=== PATIENT | male | born 1945 | race Caucasian/White ===

== ENCOUNTER → 2016-10-04 | Outpatient (CLI) | payer MEDICARE, BC | END | disposition home or self-care (01) | LOC: LABWHC1 10:22 | PROVIDERS: ATTEND Radiology Radiation Oncology | DX: C61 Malignant neoplasm of prostate (principal) | CPT/HCPCS: 36415; 84153 ==

== ENCOUNTER → 2016-12-29 | Outpatient (CLI) | payer MEDICARE, BC | END | disposition home or self-care (01) | LOC: LABWHC1 09:29 | PROVIDERS: ATTEND Radiology Radiation Oncology | DX: C61 Malignant neoplasm of prostate (principal) | CPT/HCPCS: 36415; 84153 ==

== ENCOUNTER → 2017-05-03 | Outpatient (CLI) | payer MEDICARE, BC | END | disposition home or self-care (01) | LOC: LABWHC1 10:43 | PROVIDERS: ATTEND Radiology Radiation Oncology | DX: C61 Malignant neoplasm of prostate (principal) | CPT/HCPCS: 36415; 84153 ==

== ENCOUNTER → 2017-10-12 | Outpatient (CLI) | payer MEDICARE, BC ==
[2017-10-12 12:32] LABS: Appearance,Urine Clear (Clear); Bilirubin,Urine Negative (Negative); Blood,Urine Negative (Negative); Color,Urine Yellow; Glucose,Urine (UA) Negative (Negative); Ketones,Urine Negative (Negative); Leukocyte Esterase,Urine Negative (Negative); Nitrite,Urine Negative (Negative); PH, Urine 5.5 (5.0-8.0); Protein,Urine Negative (Negative); Specific Gravity,Urine 1.016 (1.001-1.035); Urobilinogen,Urine <2.0 mg/dL (<2.0)
[2017-10-12 12:40] LABS: HCT 45.4 % (39.0-53.0); MCHC 35.1 g/dL (31.0-37.0); MCV 88.3 fL (80.0-100.0); Mean Platelet Volume 7.6; Platelet Count 177 k/uL (150-450); RBC 5.15 m/uL (4.30-5.90); RDW 12.8 % (11.5-15.5); WBC 4.2 k/uL (3.8-10.6)
[2017-10-12 12:43] LABS: Partial Thromboplastin Time 22.4 sec (22.0-30.0); Prothrombin Time 9.9 sec (9.0-12.0)
[2017-10-12 12:49] LABS: ALT 45 U/L (21-72); AST 37 U/L (17-59); Albumin 4.4 g/dL (3.5-5.0); Alkaline Phosphatase 71 U/L (38-126); Anion Gap 15 mmol/L; Blood Urea Nitrogen 16 mg/dL (9-20); Calcium 10.1 mg/dL (8.4-10.2); Carbon Dioxide 28 mmol/L (22-30); Chloride 102 mmol/L (98-107); Glucose 76 mg/dL (74-99); Potassium 4.6 mmol/L (3.5-5.1); Sodium 145 mmol/L (137-145); Total Protein 7.1 g/dL (6.3-8.2)
== END | disposition home or self-care (01) ==
LOC: LABPAT 11:32
PROVIDERS: ATTEND Orthopaedic Surgery
DX: Z01.812 Encounter for preprocedural laboratory examination (principal); M17.11 Unilateral primary osteoarthritis, right knee
CPT/HCPCS: 36415; 80053; 81003; 85027; 85610; 85730; 87070

== ENCOUNTER 2017-10-23 08:38 | Inpatient (IN) | payer MEDICARE, BC ==
[2017-10-11 18:12] VITALS: BMI 34.2
[~2017-10-23 08:38] MED LIST: ACETAMINOPHEN TAB 500 MG TAB PO ONE; LIDOCAINE 1% 20 ML VIAL (10MG/ML) FOR IV START INTRADERMA PRN; MELOXICAM 7.5 MG TAB PO ONE; MORPHINE SULFATE 2 MG/ML SYRINGE IV PRN; ONDANSETRON 4 MG/2 ML VIAL IVP ONE; TRANEXAMIC ACID 1,000 MG in SODIUM CHLORIDE 0.9% 50 ML IVPB ONE; ceFAZolin IN SWFI 2 GM/20 ML SYRINGE IVP ONE
[2017-10-23] MEDS: LACTATED RINGERS 1,000 ML IV SCH ×2 (11:32→17:41)
[2017-10-23] MEDS ORDERED: LIDOCAINE 2% (PF) 20 MG/ML 2 ML AMP INHALATION STA (11:44)
[2017-10-23] MEDS ORDERED: ROPIVACAINE 246.25 MG, EPINEPHrine 0.5 MG, KETOROLAC 30 MG, cloNIDine HCL/PF 80 MCG, WA... MISCELLANE ONE ×5 (12:58)
[2017-10-23] MEDS ORDERED: fentaNYL (PF) 50 MCG/ML 2 ML AMP ONE (13:09)
[2017-10-23] MEDS ORDERED: PHENYLEPHRINE-0.9% NACL SYG 1 MG/10 ML SYRINGE ONE (13:09)
[2017-10-23] MEDS ORDERED: LIDOCAINE 1% INJ 10MG/ML (20 ML MDV) ONE (13:09)
[2017-10-23] MEDS ORDERED: GLYCOPYRROLATE 0.2 MG/ML 2 ML VIAL ONE (13:09)
[2017-10-23] MEDS ORDERED: SODIUM CHLORIDE 0.9% 100 ML BAG ONE (13:09)
[2017-10-23] MEDS ORDERED: ceFAZolin 3,000 MG in SODIUM CHLORIDE 0.9% IRRIGATIO 3,000 ML IRRIGATION ONE (13:09)
[2017-10-23] MEDS ORDERED: NEOSTIGMINE 1 MG/ML 10 ML VIAL ONE (13:09)
[2017-10-23] MEDS ORDERED: MIDAZOLAM 2 MG/2 ML VIAL ONE (13:09)
[2017-10-23] MEDS ORDERED: TRANEXAMIC ACID 1,000 MG/10 ML VIAL ONE (13:09)
[2017-10-23] MEDS ORDERED: PROPOFOL 10 MG/ML 20 ML VIAL IV ONE (13:09)
[2017-10-23] MEDS ORDERED: DEXAMETHASONE SOD PHOS (MDV) 100 MG/10 ML VIAL ONE (13:09)
[2017-10-23] MEDS ORDERED: ROCURONIUM BROMIDE 10 MG/ML 10 ML VIAL IV ONE (13:09)
[2017-10-23] MEDS ORDERED: LACTATED RINGERS 1,000 ML IV ONE (14:06)
[2017-10-23] MEDS ORDERED: HYDROcodone/APAP 7.5-325MG 1 EACH TAB PO PRN (16:03)
[2017-10-23] MEDS ORDERED: MORPHINE SULFATE 4MG/4ML SYRG IVP PRN ×4 (16:03)
[2017-10-23] MEDS ORDERED: hydrOXYzine PAMOATE 25 MG CAP PO PRN (16:03)
[2017-10-23] MEDS ORDERED: TEMAZEPAM 15 MG CAP PO PRN (16:03)
[2017-10-23] MEDS ORDERED: ONDANSETRON 4 MG/2 ML VIAL IVP PRN (16:03)
[2017-10-23] MEDS ORDERED: BISACODYL 10 MG SUPP RECTAL PRN (16:03)
[2017-10-23] MEDS ORDERED: NALOXONE 0.4 MG/ML 1 ML VIAL IV PRN (16:03)
[2017-10-23] MEDS ORDERED: NA PHOS,M-B/NA PHOS,DI-BA 133 ML ENEMA RECTAL PRN (16:03)
[2017-10-23] MEDS ORDERED: ACETAMINOPHEN TAB 325 MG TAB PO PRN (16:03)
[2017-10-23] MEDS ORDERED: MAGNESIUM HYDROXIDE 2,400 MG/10 ML CUP PO PRN (16:03)
--- NOTE | 2017-10-23 16:19 | P.OP ---
Date of Procedure: 10/23/17 Procedure(s) Performed: PREOPERATIVE DIAGNOSIS: Right knee severe osteoarthritis with genu varum POSTOPERATIVE DIAGNOSIS: Right knee severe osteoarthritis with genu varum OPERATION: Right knee cemented total replacement arthroplasty. ANESTHESIA: Gen. ESTIMATED BLOOD LOSS: 100 ml. SECONDARY ART TEACHER: Elle Shea PA-C (assistance with: patient positioning, retraction, exposure, hemostasis, leg positioning, implantation, irrigation, closure, dressing) COMPLICATIONS: None apparent. COMPONENTS IMPLANTED: Persona system from [employer] INDICATIONS: Mr. Moralez is a 72-year-old male with a history of knee osteoarthritis. The patient's knee is end-stage, and conservative management has failed. The operation of knee replacement has been discussed at length in the office, as well as potential risks and complications. These are inclusive of, but not limited to: bleeding, infection, scarring, discomfort, blood vessel and nerve damage, need for further surgery, failure to relieve symptoms, persistence, recurrence, or worsening of problems, loosening, dislocation, wear , blood clot, pulmonary embolism, , gait dysfunction, stiffness, and other risks as discussed in the office. The patient elects to proceed and the consent form has been signed. PROCEDURE: The patient was taken to the operating room and positioned on the operating room table in the supine position. Anesthesia was initiated. Care was taken to make sure that all pressure points were adequately padded. The operative lower extremity was prepped and draped in the usual aseptic fashion using ChloraPrep. Patient was noted to have approximately a 10 flexion contracture and range of motion only to approximately 90 passively. Severe varus deformity was noted. Ioban drape was used for the case and the patient received intravenous antibiotics within one hour of the incision. A pneumotourniquet and leg de la vega were used for the case. The limb was exsanguinated with an Esmarch bandage and the tourniquet was inflated to 300 mmHg. Time-out was called confirming the patient's identity, side, procedure and administration of antibiotics and tranexamic acid. The incision was then created midline directly over the knee, carried down through skin and into the subcutaneous tissues and down to fascia. Full thickness subcutaneous medial flap was developed. Medial parapatellar arthrotomy was performed and the interior of the knee was inspected. There was end-stage osteoarthritis of the knee with a mild to moderate genu varum type deformity. The fat pad was excised and proximal medial release on the tibia was completed using meticulous dissection and a curved osteotome. The anterior cruciate ligament was taken down. Note was made of significant attrition of the anterior and significant degenerative appearance of the cruciate ligaments. The exposure was excellent. The knee was flexed 90 degrees and the patella was everted. A spot was chosen on the femur approximately 1 cm anterior to the posterior cruciate ligament insertion and an intramedullary hole was created within the femur. The intramedullary guide was then set to 5 degrees of valgus. The distal cutting block was attached and pinned into position. An appropriate amount of distal femoral resection was set. The oscillating saw was then used to make the distal femoral cut. This cut was confirmed to be flat with the flat end of an osteotome. The retractors were placed around the tibia and the tibial surface was addressed. The angle and depth of resection was adjusted using an extramedullary cutting guide. The guide had a built-in 3 degree posterior slope cut. Once the cutting guide was adjusted appropriately and in line with the axis of the tibia and confirmed to be in good position in relation to the second metatarsal and transmalleolar axis, the tibial cut was then created with protection of the posterior neurovascular structures and the collateral ligaments. The tibial cut surface was removed and sized. Femoral sizing was then accomplished using anterior referencing. Care was taken to analyze the posterior condyles for signs of deficiency or severe wear, and adjustments to the guide were made, as appropriate. 3 degree external rotation pins were placed. The cutting jig for the femur was applied to these pins. The planned cuts were further analyzed prior to performing them with the oscillating saw. No femoral notching was produced. Bone fragments were removed and the cut surfaces were finished, as necessary, with a reciprocating saw. The posterior aspect of the knee contained 3 fairly large loose bodies made of bone which were removed carefully under direct visualization. Spacer block technique was then used to confirm that the flexion and extension gaps were equal. Soft tissue releases and adjustment of the tibial and/or femoral cuts were made, as necessary, until the gaps were equal. This included release of the posterior cruciate ligament, which was excessively tight in this patient. The femur was then further finished for a posterior cruciate ligament substituting component. Patellar resurfacing was performed using a reamer. The size of the required patellar component was estimated and the patellar surface was then reamed down to a residual thickness which would recreate the [place] thickness with the component. The exact placement of the patellar component was adjusted for position based on preoperative x-rays and intraoperative findings. Prior to placing trial components, anesthetic solution consisting of ropivicaine with epinephrine, ketorolac, and clonidine was injected carefully and methodically in a grid pattern using aspiration technique into the soft tissue around the knee circumferentially, starting with the deeper tissues first and progressing to fascia, and then finally the skin/subcutaneous tissue. Particular care was taken when injecting the posterior capsule. The trial components were inserted. The tibial tray was allowed to self center and the patella was noted to track very well. The position of the tibial component was marked and the tibia was then finished for a stemmed tibial component. Cement was mixed on the back table and applied to the final components. Trial components were removed and the cut surfaces of the bone were pulse lavaged thoroughly and dried. Cement was then applied to the tibial surface and pressurized into the surface using finger pressurization technique. The tibial component was then applied and excess cement was removed after it was impacted securely and noted to be flush with the cut surface. In similar fashion, the cement was applied to the cut femoral surface, pressurized in using finger pressurization and the component was impacted into place. Excess cement was removed. The polyethylene spacer was then implanted and locked into position. The patellar component was then applied in similar technique and a patellar clamp was used to hold the patella in place as the cement hardened. Once the cement had fully hardened, the knee was reinspected. Any other cement extrusion was removed and final kinematic testing showed range of motion from 0 to 130 degrees with excellent stability, both medially and laterally and appropriate alignment of the leg. Patellar tracking was excellent. The knee was then thoroughly pulse lavaged with normal saline. The tourniquet was deflated and hemostasis was obtained with electrocautery and IV tranexamic acid, 1 g given at the start of the operation and 1 g at the start of closure. Closure was with #2 Ethibond in the fascia/capsule and supplemented with #2 Quill, 2-0 Vicryl suture was used for the subcutaneous tissues and 3-0 Quill for the skin. Dermabond/Steri-Strips were then applied. A lightly compressive dressing was applied using Webril and an Tom wrap. The patient was then transferred to [facility] and taken to the recovery room in stable condition. Sponge and needle counts were correct.
--- NOTE | 2017-10-23 16:31 | XR ---
EXAMINATION TYPE: XR knee limited RT DATE OF EXAM: 10/23/2017 CLINICAL HISTORY: Right knee pain and arthritis status post total knee replacement. TECHNIQUE: Portable AP and crosstable lateral views of the right knee are obtained immediately posto peratively. COMPARISON: None FINDINGS: Metallic hardware from total right knee arthroplasty is seen and appears satisfactory in a lignment and position. There is evidence of recent surgery with diffuse subcutaneous gas and soft ti ssue swelling noted. IMPRESSION: METALLIC HARDWARE FROM TOTAL RIGHT KNEE ARTHROPLASTY IS SATISFACTORY IN ALIGNMENT.
[2017-10-23] MEDS: SENNOSIDES-DOCUSATE SODIUM 1 EACH TAB PO SCH (21:03)
[2017-10-24] MEDS: LACTATED RINGERS 1,000 ML IV SCH ×4 (04:42→21:32)
[2017-10-24] MEDS: HYDROcodone/APAP 7.5-325MG 1 EACH TAB PO PRN ×3 (06:45→20:31)
[2017-10-24] MEDS: MULTIVITAMINS, THERA 1 EACH TAB PO SCH (06:46)
[2017-10-24] MEDS: MELOXICAM 7.5 MG TAB PO SCH (06:46)
[2017-10-24 07:56] LABS: Basophils % (A) 0 %; Eosinophils % (A) 0 %; HCT 37.2 % (39.0-53.0); HGB 13.3 gm/dL (13.0-17.5); Lymphocytes # (A) 0.6 k/uL (1.0-4.8); Lymphocytes % (A) 5 %; MCH 31.3 pg (25.0-35.0); MCHC 35.6 g/dL (31.0-37.0); MCV 87.7 fL (80.0-100.0); Mean Platelet Volume 7.6; Monocytes # (A) 0.6 k/uL (0-1.0); Monocytes % (A) 5 %; Neutrophils # (A) 11.1 k/uL (1.3-7.7); Neutrophils % (A) 90 %; Platelet Count 187 k/uL (150-450); RBC 4.24 m/uL (4.30-5.90); RDW 12.6 % (11.5-15.5); WBC 12.4 k/uL (3.8-10.6)
[2017-10-24] MEDS: CARVEDILOL 12.5 MG TAB PO SCH (08:42)
[2017-10-24] MEDS: DIPYRIDAMOLE-ASPIRIN 200-25 MG 1 EACH CPMP.12HR PO SCH (08:42)
[2017-10-24] MEDS: TRIAMTERENE-HCTZ 37.5-25MG 1 EACH CAP PO SCH (08:42)
[2017-10-24] MEDS: ATORVASTATIN 10 MG TAB PO SCH (08:42)
--- NOTE | 2017-10-24 08:48 | P.PN ---
Subjective Progress Note Date: 10/24/17 Principal diagnosis: Status post right total knee arthroplasty This is a 72 year-old male post right total knee arthroplasty. This is post-op day 1. The patient was evaluated at the bedside today. The patient denies nausea, vomiting, abdominal pain, shortness of breath, and chest pain this morning. He states his pain is controlled at this time. The patient has not been up with physical therapy. There has been some drainage from his incision this morning. Objective - Vital Signs Vital signs: Vital Signs Temp 97.1 F L 10/24/17 06:43 Pulse 82 10/24/17 06:43 Resp 16 10/24/17 06:49 BP 119/77 10/24/17 06:43 Pulse Ox 93 L 10/24/17 06:43 Intake & Output 10/23/17 10/24/17 10/24/17 18:59 06:59 18:59 Intake Total 1621 800 Output Total 100 325 Balance 1521 475 Weight 102.058 kg Intake: IV 1501 Intake, IV Titration 800 Amount Lactated Ringers 1,000 ml 800 @ 100 mls/hr IV .Q10H [facility] Rx#:[id number] Oral 120 Output: Urine 325 Estimated Blood Loss 100 Other: Voiding Method Urinal - Exam The patient does not appear in acute distress. Alert and orientated x3. Dressing is intact. Incision appears fine with no erythema. There is a small amount of serosanguineous drainage on the dressing. Calf is soft and nontender. Good foot and ankle motion without difficulty. Sensation and circulatory status is intact. - Labs CBC & Chem 7: 10/24/17 06:35 Labs: Abnormal Lab Results - Last 24 Hours (Table) 10/24/17 Range/Units 06:35 WBC 12.4 H (3.8-10.6) k/uL RBC 4.24 L (4.30-5.90) m/uL Hct 37.2 L (39.0-53.0) % Neutrophils # 11.1 H (1.3-7.7) k/uL Lymphocytes # 0.6 L (1.0-4.8) k/uL Assessment and Plan (1) Primary localized osteoarthritis of right knee Current Visit: Yes Status: Acute Code(s): M17.11 - UNILATERAL PRIMARY OSTEOARTHRITIS, RIGHT KNEE SNOMED Code(s): 657348363 (2) Status post total right knee replacement Current Visit: Yes Status: Acute Code(s): Z96.651 - PRESENCE OF RIGHT ARTIFICIAL KNEE JOINT SNOMED Code(s): 7516543646919 Plan: 1. Continue pain control 2. Anticoagulation with Aggrenox 3. Start physical therapy and ambulation, hold CPM today due to drainage. 4. Anticipate discharge home with homecare tomorrow
[2017-10-24] MEDS ORDERED: HYDROmorphone 2 MG TAB PO PRN ×3 (08:58→08:59)
[2017-10-24] MEDS ORDERED: HYDROmorphone 4 MG TABLET PO PRN (08:59)
--- NOTE | 2017-10-24 11:28 | P.CONS ---
History of Present Illness - Reason for Consult Consult date: 10/24/17 Medical management - Chief Complaint s/p right TKA - History of Present Illness 72-year-old male who underwent elective right total knee arthroplasty on 10/23/[address] Burnette was consulted for medical management. The patient has a history of prostate cancer, TIA, hyperlipidemia, hypertension , pulmonary emboli, and osteoarthritis. He is a former cigarette smoker. Patient was evaluated at the bedside on rounds with Dr. Burnette. Patient is awake and alert. Sitting up in bed. He states he has not been out of bed yet. Denies pain. Denies shortness of breath. Denies chest pain. Denies cough. He reports using his incentive spirometer 10 times an hour and has been pulling 2500- 3000cc. Appetite is good. Denies nausea or vomiting. Review of Systems Those systems with pertinent positive or pertinent negative responses have been documented in the HPI Past Medical History Past Medical History: Cancer, CVA/TIA, Hyperlipidemia, Hypertension, Osteoarthritis (OA), Pulmonary Embolus (PE) Additional Past Medical History / Comment(s): Hx had a cardiac event after prostectomy post op-pt went unresponsive cpr transfer to ICU was needed,TIAs-no residual,Prostate CA 2012-recurrence 2016 Radiation 30 txs 2016-has intermittent bleeding with urine and stools,hx back fx History of Any Multi-Drug Resistant Organisms: None Reported Past Surgical History: Back Surgery, Prostate Surgery Additional Past Surgical History / Comment(s): Turcios Alejandro Fusion to spine w / bone graft site rt hip,brenda cataract Past Anesthesia/Blood Transfusion Reactions: No Reported Reaction Additional Past Anesthesia/Blood Transfusion Reaction / Comm: hx had jaundice reaction to blood transfusion Past Psychological History: No Psychological Hx Reported Smoking Status: Former smoker Past Alcohol Use History: Occasional Additional Past Alcohol Use History / Comment(s): smoked approx from age [age] Past Drug Use History: None Reported - Past Family History Mother Family Medical History: No Reported History Medications and Allergies Home Medications Medication Instructions Recorded Confirmed Type Atorvastatin [Lipitor] 10 mg PO DAILY 10/11/17 10/23/17 History Carvedilol [Coreg] 12.5 mg PO QAM 10/11/17 10/23/17 History Cholecalciferol [Vitamin D3] 5,000 unit PO DAILY 10/11/17 10/23/17 History Dipyridamole-Aspirin 200-25 mg 1 tab PO QAM 10/11/17 10/23/17 History [Aggrenox] Fish Oil/Dha/Epa [Fish Oil 1,200 1 cap PO DAILY 10/11/17 10/23/17 History mg Fish Oil] Triamterene-Hctz 37.5-25Mg 1 cap PO DAILY 10/11/17 10/23/17 History [Dyazide 37.5-25 Capsule] Vitamin E (Dl,Tocopheryl Acet) 400 unit PO DAILY 10/11/17 10/23/17 History [Vitamin E] HYDROcodone/APAP 7.5-325MG [[place] 1 - 2 tab PO Q4-6H PRN #90 tab 10/23/17 Rx 7.5-325] Sennosides-Docusate Sodium 1 tab PO BID #60 tablet 10/23/17 Rx [Senokot-S] Allergies Allergy/AdvReac Type Severity Reaction Status Date / Time No Known Allergies Allergy Verified 10/23/17 16:26 Physical Exam Vitals: Vital Signs Temp Pulse Pulse Resp BP Pulse Ox 10/24/17 08:45 83 123/57 10/24/17 06:49 16 10/24/17 06:43 97.1 F L 82 16 119/77 93 L 10/24/17 01:45 97.5 F L 88 17 124/79 95 10/23/17 19:00 78 134/79 10/23/17 18:45 83 129/85 10/23/17 18:30 80 131/88 10/23/17 18:15 81 136/79 10/23/17 18:00 74 136/80 10/23/17 17:45 71 132/73 10/23/17 17:30 71 136/86 10/23/17 17:23 16 10/23/17 17:15 75 149/89 10/23/17 17:00 70 16 134/77 96 10/23/17 16:41 70 16 123/72 96 10/23/17 16:27 74 16 125/78 95 10/23/17 16:12 97.1 F L 76 16 132/76 97 10/23/17 11:58 75 10/23/17 11:48 75 18 Intake and Output 10/23/17 10/24/17 10/24/17 22:59 06:59 14:59 Intake Total 220 800 Output Total 425 Balance -205 800 Intake: IV 100 Intake, IV Titration 800 Amount Lactated Ringers 1,000 ml 800 @ 100 mls/hr IV .Q10H [facility] Rx#:[id number] Oral 120 Output: Urine 325 Estimated Blood Loss 100 Other: Voiding Method Urinal # Voids 1 Weight 102.058 kg GENERAL: This is a 72-year-old male in no apparent distress at the time of examination. Pleasant and cooperative. HEENT: Head is atraumatic, normocephalic. Pupils are equal, round, and reactive to light. Sclerae anicteric. Conjunctivae are clear. Mucus membranes of the mouth are moist. Neck is supple. RESPIRATORY: Clear to ausculation. No wheezes, rales, or rhonchi. No use of accessory muscles. Patient maintaining oxygen saturation greater than 92%. No chest wall tenderness is noted on palpation or with deep breathing. CARDIOVASCULAR: Regular rate and rhythm. S1 and S2 noted. No systolic or diastolic murmur auscultated. No JVD noted. No S3 or S4 noted. GASTROINTESTINAL: No distention noted. Abdomen soft and round. Normal active bowel sounds auscultated x 4 quadrants. No pain or tenderness noted upon palpation. INTEGUMENTARY: Dressing to right knee with small amount of serosanguineous drainage. No cyanosis. No jaundice. No rashes noted. No cellulitis noted. EXTREMITIES: 2+ peripheral pulses. No evidence of peripheral edema. No calf tenderness noted. NEUROLOGIC: Cranial nerves II-XII intact. PSYCHIATRIC: Awake, alert, and oriented X 3. Appropriate affect. Intact judgement and insight. Results CBC & Chem 7: 10/24/17 06:35 Labs: Abnormal Lab Results - Last 24 Hours (Table) 10/24/17 Range/Units 06:35 WBC 12.4 H (3.8-10.6) k/uL RBC 4.24 L (4.30-5.90) m/uL Hct 37.2 L (39.0-53.0) % Neutrophils # 11.1 H (1.3-7.7) k/uL Lymphocytes # 0.6 L (1.0-4.8) k/uL Assessment and Plan Plan: ASSESSMENT: Osteoarthritis, s/p right total knee arthroplasty, POD #1 Essential hypertension Hyperlipidemia History of TIA History of pulmonary embolus History of prostate cancer Remote history of tobacco abuse Obesity: BMI 34.2 PLAN: Continue postop management per orthopedics Home meds as appropriate Pain control Increase activity IS 10x/hour Monitor labs Resume Aggrenox Monitor vital signs and address as appropriate Further recommendations pending patient's course Patient is cleared for discharge from a medical standpoint when cleared by orthopedics Nurse practitioner note has been reviewed by physician. Signing provider agrees with the documented findings, assessment, and plan of care.
[2017-10-24] MEDS: SENNOSIDES-DOCUSATE SODIUM 1 EACH TAB PO SCH (20:31)
[2017-10-25] MEDS ORDERED: HYDROcodone/APAP 7.5-325MG 1 EACH TAB ONE (06:15)
[2017-10-25] MEDS ORDERED: hydrOXYzine PAMOATE 25 MG CAP ONE (06:15)
--- NOTE | 2017-10-25 07:58 | P.DS ---
Providers Date of admission: 10/23/17 10:33 Expected date of discharge: 10/25/17 Attending physician: Santiago Massey Consults: 10/23/17 16:03 Consult Physician Routine Consulting Provider: Juvencio Burnette Reason/Comments: Medical management Do you want consulting provider notified?: Yes Primary care physician: Juvencio Burnette - Discharge Diagnosis(es) (1) Primary localized osteoarthritis of right knee Current Visit: Yes Status: Acute (2) Status post total right knee replacement Current Visit: Yes Status: Acute Hospital Course: This is a 72-year-old male who was last seen with complaint of continued right knee pain. The patient has a known history of degenerative arthritis of the right knee and presents to discuss surgical options. After discussion and consideration the patient elects to proceed with total right knee arthroplasty. The patient is seen preoperatively by his primary care physician and cleared for surgery. The patient is admitted to [facility] for total right knee arthroplasty. The procedure is performed without complication or sequelae. Patient is doing fairly well postoperatively. The patient states that he feels he may have overdone it with activity on the evening of his surgery. He had increased drainage from the knee on postoperative day #1. On exam today he has a scant amount of active drainage from the midportion of the incision. The Dermabond tape is intact. Vital signs are stable at discharge. Labs are stable at discharge. the patient is ambulating well with walker with minimal assistance. The patient is discharged to home on postop day #2 pending medical clearance. Please see orders and refer to the med rec for accurate list of medications. Plan - Discharge Summary Discharge Rx Participant: Yes New Discharge Prescriptions: New HYDROcodone/APAP 7.5-325MG [[place] 7.5-325] 1 - 2 tab PO Q4-6H PRN #90 tab PRN Reason: Pain Sennosides-Docusate Sodium [Senokot-S] 1 tab PO BID #60 tablet hydrOXYzine PAMOATE [Vistaril] 25 mg PO Q4-6H #30 capsule No Action Triamterene-Hctz 37.5-25Mg [Dyazide 37.5-25 Capsule] 1 cap PO DAILY Carvedilol [Coreg] 12.5 mg PO QAM Dipyridamole-Aspirin 200-25 mg [Aggrenox] 1 tab PO QAM Atorvastatin [Lipitor] 10 mg PO DAILY Vitamin E (Dl,Tocopheryl Acet) [Vitamin E] 400 unit PO DAILY Cholecalciferol [Vitamin D3] 5,000 unit PO DAILY Fish Oil/Dha/Epa [Fish Oil 1,200 mg Fish Oil] 1 cap PO DAILY Discharge Medication List Atorvastatin [Lipitor] 10 mg PO DAILY 10/11/17 [History] Carvedilol [Coreg] 12.5 mg PO QAM 10/11/17 [History] Cholecalciferol [Vitamin D3] 5,000 unit PO DAILY 10/11/17 [History] Dipyridamole-Aspirin 200-25 mg [Aggrenox] 1 tab PO QAM 10/11/17 [History] Fish Oil/Dha/Epa [Fish Oil 1,200 mg Fish Oil] 1 cap PO DAILY 10/11/17 [History] Triamterene-Hctz 37.5-25Mg [Dyazide 37.5-25 Capsule] 1 cap PO DAILY 10/11/17 [ History] Vitamin E (Dl,Tocopheryl Acet) [Vitamin E] 400 unit PO DAILY 10/11/17 [History] HYDROcodone/APAP 7.5-325MG [[place] 7.5-325] 1 - 2 tab PO Q4-6H PRN #90 tab [Rx] Sennosides-Docusate Sodium [Senokot-S] 1 tab PO BID #60 tablet 10/23/17 [Rx] hydrOXYzine PAMOATE [Vistaril] 25 mg PO Q4-6H #30 capsule 10/25/17 [Rx] Follow up Appointment(s)/Referral(s): Elle Shea PAC [PHYSICIAN SPECIAL EDUCATION CLASSROOM AIDE] - 2 Weeks [facility] Visiting Nurse, [NON-STAFF] - Santiago Massey MD [STAFF PHYSICIAN] - 3 Days Ambulatory/Diagnostic Orders: Continuous Passive Motion (CPM) Machine [DME.AMB1] Time Frame: 3 Weeks, Facility : [facility], Location: Case Management Activity/Diet/Wound Care/Special Instructions: May bear wt as tolerated. Keep a compressive bandage on the knee if having significant drainage. May shower if no drainage from incision for 24 hours. Hold CPM until Monday. CPM 5-6h daily as tolerated after that point. [facility] - [facility] - [phone] - please call once home to arrange delivery Discharge Disposition: HOME WITH HOME HEALTH SERVICES
[2017-10-25] MEDS: LACTATED RINGERS 1,000 ML IV SCH ×3 (08:23→16:30)
--- NOTE | 2017-10-25 08:44 | P.PN ---
Subjective Progress Note Date: 10/25/17 Patient evaluated at the bedside with Dr. Burnette. Patient is awake and alert. Patient states pain is tolerable. Denies shortness of breath or chest pain. Using IS hourly. Appetite is good. Denies nausea or vomiting. Objective - Vital Signs Vital signs: Vital Signs Temp 98.1 F 10/25/17 08:12 Pulse 75 10/25/17 08:12 Resp 16 10/25/17 08:12 BP 126/73 10/25/17 08:12 Pulse Ox 92 L 10/25/17 08:12 Intake & Output 10/24/17 10/25/17 10/25/17 18:59 06:59 18:59 Intake Total 240 Balance 240 Intake: Oral 240 Other: # Voids 1 - Exam GENERAL: This is a 72-year-old male in no apparent distress at the time of examination. Pleasant and cooperative. HEENT: Head is atraumatic, normocephalic. Pupils are equal, round, and reactive to light. Sclerae anicteric. Conjunctivae are clear. Mucus membranes of the mouth are moist. Neck is supple. RESPIRATORY: Clear to ausculation. No wheezes, rales, or rhonchi. No use of accessory muscles. Patient maintaining oxygen saturation greater than 92%. No chest wall tenderness is noted on palpation or with deep breathing. CARDIOVASCULAR: Regular rate and rhythm. S1 and S2 noted. No systolic or diastolic murmur auscultated. No JVD noted. No S3 or S4 noted. GASTROINTESTINAL: No distention noted. Abdomen soft and round. Normal active bowel sounds auscultated x 4 quadrants. No pain or tenderness noted upon palpation. INTEGUMENTARY: Dressing to right knee with ARNAUD wrap noted. No cyanosis. No jaundice. No rashes noted. No cellulitis noted. EXTREMITIES: 2+ peripheral pulses. No evidence of peripheral edema. No calf tenderness noted. NEUROLOGIC: Cranial nerves II-XII intact. PSYCHIATRIC: Awake, alert, and oriented X 3. Appropriate affect. Intact judgement and insight. - Labs CBC & Chem 7: 10/24/17 06:35 Assessment and Plan Plan: ASSESSMENT: Osteoarthritis, s/p right total knee arthroplasty, POD #2 Essential hypertension Hyperlipidemia History of TIA History of pulmonary embolus History of prostate cancer Remote history of tobacco abuse Obesity: BMI 34.2 PLAN: Continue postop management per orthopedics Home meds as appropriate Pain control Increase activity IS 10x/hour Monitor labs Resume Aggrenox Monitor vital signs and address as appropriate Further recommendations pending patient's course Patient is cleared for discharge from a medical standpoint Nurse practitioner note has been reviewed by physician. Signing provider agrees with the documented findings, assessment, and plan of care.
[2017-10-25] MEDS: ATORVASTATIN 10 MG TAB PO SCH (09:18)
[2017-10-25] MEDS: MELOXICAM 7.5 MG TAB PO SCH (09:18)
[2017-10-25] MEDS: CARVEDILOL 12.5 MG TAB PO SCH (09:18)
[2017-10-25] MEDS: DIPYRIDAMOLE-ASPIRIN 200-25 MG 1 EACH CPMP.12HR PO SCH (09:18)
[2017-10-25] MEDS: TRIAMTERENE-HCTZ 37.5-25MG 1 EACH CAP PO SCH (09:19)
[2017-10-25 09:34] LABS: Glucose,Whole Blood 209 mg/dL (75-99)
--- NOTE | 2017-10-25 10:00 | CT ---
EXAMINATION TYPE: CT brain wo con DATE OF EXAM: 10/25/2017 COMPARISON: 12/17/2011 MRI INDICATION: Slurred speech DLP: 1126.5 mGycm, Automated exposure control for dose reduction was used. CONTRAST: None CT of the brain is performed utilizing 3 mm thick sections through the posterior fossa and 3 mm thick sections through the remaining calvarium. Study is performed within 24 hours of arrival to the hosp [facility]. No abnormal hyperdensity is present to suggest an acute intracranial hemorrhage. No mass lesion is evident. No acute infarcts are evident. There is periventricular white matter hypodensity, most likely on the basis of chronic white matter ischemic changes. This is confluent. White matter changes were evident on the 2012 MRI may has some progression. Ventricles and sulci are slightly prominent for the patient age compatible with some age related atro phy.. Paranasal sinuses and mastoid air cells within the [id number] are clear. Some septal deviation is noted. IMPRESSIONS: 1. Confluent periventricular white matter changes progressive from 2012. Findings can be compatible with chronic white matter ischemic changes. 2. No acute changes are identified.
[2017-10-25 10:17] LABS: Basophils % (A) 0 %; Eosinophils # (A) 0.1 k/uL (0-0.7); Eosinophils % (A) 2 %; HCT 34.1 % (39.0-53.0); HGB 12.1 gm/dL (13.0-17.5); Lymphocytes # (A) 0.7 k/uL (1.0-4.8); Lymphocytes % (A) 12 %; MCH 31.3 pg (25.0-35.0); MCHC 35.6 g/dL (31.0-37.0); MCV 87.9 fL (80.0-100.0); Mean Platelet Volume 8.4; Monocytes # (A) 0.4 k/uL (0-1.0); Monocytes % (A) 7 %; Neutrophils # (A) 4.4 k/uL (1.3-7.7); Neutrophils % (A) 77 %; Platelet Count 131 k/uL (150-450); RBC 3.87 m/uL (4.30-5.90); RDW 12.9 % (11.5-15.5); WBC 5.7 k/uL (3.8-10.6)
[2017-10-25 10:26] LABS: ALT 25 U/L (21-72); AST 23 U/L (17-59); Albumin 3.3 g/dL (3.5-5.0); Alkaline Phosphatase 56 U/L (38-126); Anion Gap 11 mmol/L; Blood Urea Nitrogen 19 mg/dL (9-20); Calcium 8.4 mg/dL (8.4-10.2); Carbon Dioxide 28 mmol/L (22-30); Chloride 100 mmol/L (98-107); Glucose 115 mg/dL (74-99); Potassium 3.7 mmol/L (3.5-5.1); Sodium 139 mmol/L (137-145); Total Bilirubin 0.9 mg/dL (0.2-1.3); Total Protein 5.6 g/dL (6.3-8.2)
[2017-10-25 10:29] LABS: Partial Thromboplastin Time 22.7 sec (22.0-30.0); Prothrombin Time 9.9 sec (9.0-12.0)
[2017-10-25] MEDS ORDERED: SODIUM CHLORIDE 0.9% 1,000 ML IV SCH (10:45)
[2017-10-25 10:55] LABS: Creatine Kinase 90 U/L (55-170)
[2017-10-25 11:08] LABS: Creatine Kinase MB 1.3 ng/mL (0.0-2.4); Troponin I <0.012 ng/mL (0.000-0.034)
[2017-10-25] MEDS: HYDROcodone/APAP 7.5-325MG 1 EACH TAB PO PRN ×2 (12:27→21:03)
[2017-10-25] MEDS: MULTIVITAMINS, THERA 1 EACH TAB PO SCH (12:29)
--- NOTE | 2017-10-25 13:30 | US ---
EXAMINATION TYPE: US venous doppler duplex LE DATE OF EXAM: 10/25/2017 11:47 AM COMPARISON: CLINICAL HISTORY: s/p right TKA, TIA. HX right TKR on Monday. Right leg swelling and pain. Patient states he is on blood thinners. Patient states having a blood clot in the lung at age 38 from a back injury. SIDE PERFORMED: Bilateral TECHNIQUE: The lower extremity deep venous system is examined utilizing real time linear array sonog jose alejandro with graded compression, doppler sonography and color-flow sonography. VESSELS IMAGED: External Iliac Vein (EIV) Common Femoral Vein Deep Femoral Vein Greater Saphenous Vein * Femoral Vein Popliteal Vein Proximal Calf Veins (* superficial vessels) Right Leg: Negative for DVT Left Leg: Negative for DVT IMPRESSION: 1. Bilateral lower extremity ultrasound negative for deep venous thrombosis.
--- NOTE | 2017-10-25 13:38 | US ---
EXAMINATION TYPE: US carotid duplex BILAT DATE OF EXAM: 10/25/2017 COMPARISON: NONE CLINICAL HISTORY: TIA. Hx of TIA x 20 years ago. Patient states he had a recent episode of trying to put words together. EXAM MEASUREMENTS: RIGHT: Peak Systolic Velocity (PSV) cm/sec ----- Right CCA: 88.6 ----- Right ICA: 89.7 ----- Right ECA: 99.1 ICA/CCA ratio: 1.0 RIGHT: End Diastole cm/sec ----- Right CCA: 10.3 ----- Right ICA: 23.7 ----- Right ECA: 17.6 LEFT: Peak Systolic Velocity (PSV) cm/sec ----- Left CCA: 112.1 ----- Left ICA: 90.5 ----- Left ECA: 86.6 ICA/CCA ratio: 0.8 LEFT: End Diastole cm/sec ----- Left CCA: 26.7 ----- Left ICA: 32.2 ----- Left ECA: 12.8 VERTEBRALS (direction of flow): Right Vertebral: Antegrade Left Vertebral: Antegrade Rhythm: Arrhythmia Bilateral wall thickening. Plaque seen in left bulb. No significant stenosis or elevated velocities. IMPRESSION: 1. Atheromatous plaquing without significant flow-limiting stenosis. Criteria for Assigning % of Stenosis / Diameter reduction (Estimation based on the indirect measurements of the internal carotid artery velocities (ICA PSV). 1. Normal (no stenosis)=ICA PSV < 125 cm/s: ratio < 2.0: ICA EDV<40 cm/s. 2. Less than 50% stenosis=ICA PSV < 125 cm/s: ratio < 2.0: ICA EDV<40 cm/s. 3. 50 to 69% stenosis=ICA PSV of 125 to 230 cm/s: ration 2.0 ? 4.0: ICA EDV 40-100 cm/s. 4. Greater than 70% stenosis to near occlusion= ICA PSV > 230 cm/s: ratio > 4.0: ICA EDV > 100 cm/s. 5. Near occlusion= ICA PSV velocities may be low or undetectable: variable ratio and ICA EDV. 6. Total occlusion=unable to detect flow.
[2017-10-25] MEDS: SENNOSIDES-DOCUSATE SODIUM 1 EACH TAB PO SCH (23:25)
[2017-10-26] MEDS: LACTATED RINGERS 1,000 ML IV SCH (05:50)
[2017-10-26 06:32] LABS: Basophils % (A) 0 %; Eosinophils # (A) 0.2 k/uL (0-0.7); Eosinophils % (A) 3 %; HCT 35.1 % (39.0-53.0); HGB 12.3 gm/dL (13.0-17.5); Lymphocytes # (A) 0.6 k/uL (1.0-4.8); Lymphocytes % (A) 11 %; MCH 30.7 pg (25.0-35.0); MCHC 34.9 g/dL (31.0-37.0); Mean Platelet Volume 7.5; Monocytes # (A) 0.5 k/uL (0-1.0); Monocytes % (A) 10 %; Neutrophils # (A) 3.9 k/uL (1.3-7.7); Neutrophils % (A) 73 %; Platelet Count 140 k/uL (150-450); RBC 3.99 m/uL (4.30-5.90); RDW 12.9 % (11.5-15.5); WBC 5.3 k/uL (3.8-10.6)
--- NOTE | 2017-10-26 07:51 | P.PN ---
Subjective Progress Note Date: 10/26/17 Principal diagnosis: Primary osteoarthritis right knee. Status post Total Right Knee arthroplasty. Transient ischemic attack. This is a 72-year-old male who is status post total right knee arthroplasty. He was sent for discharge yesterday when he developed some symptoms consistent with a TIA. He was taken to the selective care unit and had computed tomography scan of the brain, carotid ultrasound and venous Doppler, all of which were fairly normal. He is currently awaiting an EEG. He has been evaluated by neurology. He states that he is feeling much better today. His symptoms have resolved. He believes that the drainage to his right knee has slowed down as well. Objective - Vital Signs Vital signs: Vital Signs Temp 98.1 F 10/26/17 04:00 Pulse 75 10/26/17 04:00 Resp 16 10/26/17 04:00 BP 100/57 10/26/17 04:00 Pulse Ox 96 10/26/17 04:00 Intake & Output 10/25/17 10/26/17 10/26/17 18:59 06:59 18:59 Intake Total 540 Output Total 1700 Balance 540 -1700 Weight 105.3 kg Intake: Oral 540 Output: Urine 1700 Other: Voiding Method Urinal - Exam This is a pleasant 72-year-old male in no acute distress. He is alert and oriented 3. His speech and mentation are normal this morning. Exam of the right knee reveals that there is mild to moderate sanguinous drainage on the dressing. There is no active drainage noted at this time. The Dermabond tape is intact. However, the tape has loosened from the skin in the area of the prior drainage. There is no erythema. There is mild ecchymosis. Swelling is improved the knee. He does have some edema to the lower leg. He has full foot and ankle motion without difficulty or pain. Neurovascular status to the lower extremity is intact. - Labs CBC & Chem 7: 10/26/17 05:46 10/25/17 10:05 Labs: Abnormal Lab Results - Last 24 Hours (Table) 10/25/17 10/25/17 10/25/17 Range/Units 09:29 10:05 10:05 RBC 3.87 L (4.30-5.90) m/uL Hgb 12.1 L (13.0-17.5) gm/dL Hct 34.1 L (39.0-53.0) % Plt Count 131 L (150-450) k/uL Lymphocytes # 0.7 L (1.0-4.8) k/uL Glucose 115 H (74-99) mg/dL POC Glucose (mg/dL) 209 H (75-99) mg/dL Total Protein 5.6 L (6.3-8.2) g/dL Albumin 3.3 L (3.5-5.0) g/dL 10/26/17 Range/Units 05:46 RBC 3.99 L (4.30-5.90) m/uL Hgb 12.3 L (13.0-17.5) gm/dL Hct 35.1 L (39.0-53.0) % Plt Count 140 L (150-450) k/uL Lymphocytes # 0.6 L (1.0-4.8) k/uL Glucose (74-99) mg/dL POC Glucose (mg/dL) (75-99) mg/dL Total Protein (6.3-8.2) g/dL Albumin (3.5-5.0) g/dL Assessment and Plan (1) Primary localized osteoarthritis of right knee Current Visit: Yes Status: Acute Code(s): M17.11 - UNILATERAL PRIMARY OSTEOARTHRITIS, RIGHT KNEE SNOMED Code(s): 569255093 (2) Status post total right knee replacement Current Visit: Yes Status: Acute Code(s): Z96.651 - PRESENCE OF RIGHT ARTIFICIAL KNEE JOINT SNOMED Code(s): 5286828765363 (3) Transient ischemic attack (TIA) Current Visit: Yes Status: Acute Code(s): G45.9 - TRANSIENT CEREBRAL ISCHEMIC ATTACK, UNSPECIFIED SNOMED Code(s): 458917235 Plan: The clinical findings are discussed the patient. His dressing is changed and he is placed in a compressive dressing. He is to hold the CPM until follow-up on Monday. He is to keep the incision clean and dry with a compressive bandage. He be discharged when cleared with medical and neurology. He is to follow-up in our office on Monday.
[2017-10-26] MEDS: HYDROcodone/APAP 7.5-325MG 1 EACH TAB PO PRN ×2 (07:53→12:57)
--- NOTE | 2017-10-26 08:36 | CONS ---
CONSULTATION DATE OF CONSULTATION: 10/25/2017 CHIEF COMPLAINT: Transient ischemic attack. HISTORY OF PRESENT ILLNESS: The patient is a pleasant 72-year-old, male, who is being evaluated by the neurology service per the request of Dr. Massey for a transient ischemic attack. The patient was admitted to [facility] on 10/23/2017 and underwent a right total knee replacement surgery. He had been doing well after his surgery and was scheduled to be discharged home today. The patient has history of transient ischemic attacks and is on Aggrenox b.i.d. at home. Aggrenox was held for the surgery for 1 week. It was restarted yesterday. Soon after he received Aggrenox, he had a sudden onset of difficulty speaking and code stroke was called. The symptoms lasted a few minutes and resolved spontaneously. A stat CT scan of the brain was done, which showed small-vessel ischemic changes. His carotid Doppler showed no hemodynamically significant stenosis. His cardiac enzymes and INR were normal. His comprehensive metabolic profile was normal except for mild hyperglycemia at 115. His CBC showed mild anemia with a hemoglobin of 12.1 and hematocrit of 34% and thrombocytopenia at 131,000. At the time of my evaluation, the patient is lying in his bed and appears to be in no acute distress. He denies any recurrence of any stroke-like symptoms. PAST MEDICAL HISTORY: Transient ischemic attacks, cancer, dyslipidemia, hypertension, arthritis, history of pulmonary embolism, prostate cancer, spine surgery, cataract surgery. SOCIAL HISTORY: The patient is a former smoker. He occasionally drinks alcohol. He denies any drug use. FAMILY HISTORY: Noncontributory. HOME MEDICATIONS: Reviewed in the chart. ALLERGIES: No known drug allergies. REVIEW OF SYSTEMS: CONSTITUTIONAL: Negative. EYES: Negative. ENT: Negative. CARDIOVASCULAR: Negative. RESPIRATORY: Negative. NEUROLOGICAL: As mentioned above. GASTROINTESTINAL: Negative. GENITOURINARY: Negative. PSYCHIATRIC: Negative. MUSCULOSKELETAL: As mentioned above. DERMATOLOGICAL: Negative. ENDOCRINE: Negative. PHYSICAL EXAM: Vital signs show a temperature of 97.2, pulse 89, respiration 18, blood pressure 123/79. GENERAL APPEARANCE: The patient is a well-developed, male, who appears to be in no acute distress. HEENT: Normocephalic, atraumatic. No facial asymmetry is seen. Extraocular muscles are intact. Neck is supple with no masses felt. CARDIOVASCULAR: Regular rate and rhythm. ABDOMEN: Nontender, nondistended. Extremities showed trace edema with no clubbing seen. His right knee is bandaged. NEUROLOGICAL: The patient is awake, aware and oriented x3. Speech and language are normal. No lateralizing weakness is seen. No sensory deficit is noticed. No facial asymmetry is seen on cranial nerve testing. IMPRESSION: 1. Transient ischemic attack. 2. Expressive aphasia, resolved. 3. Thrombocytopenia. 4. Status post right knee replacement surgery. RECOMMENDATION: The patient does appear to have suffered a transient ischemic attack with a transient episode of expressive aphasia. His symptoms continue to be resolved at this time. His Aggrenox was held for his surgery and it was just restarted yesterday. Continue Aggrenox at b.i.d. dosing. I do recommend further monitoring of his platelet count as he does have thrombocytopenia. I reviewed his CT scan of the brain and carotid Doppler both of which showed no significant abnormalities. An EEG will be ordered. Continue the rest of your current workup and management. I will continue to follow with you. Further recommendations to follow. The patient will likely be cleared for discharge from a neurology standpoint tomorrow if his platelet count is not worsening. Thank you for allowing me to participate in the care of your patient. If you have any questions, please feel free to contact me. CHIKI / DEENA: [id number] / SNEHA
--- NOTE | 2017-10-26 09:07 | P.PN ---
Subjective Progress Note Date: 10/26/17 Patient evaluated at the bedside with Dr. Burnette. Patient is awake and alert. Patient states pain is tolerable. Denies shortness of breath or chest pain. Using IS hourly. Appetite is good. Denies nausea or vomiting. No further episodes of altered speech. No motor deficits. Patient was evaluated by neurology yesterday. Awaiting EEG today. Anticipate discharge home today if cleared by neurology and orthopedics. Objective - Vital Signs Vital signs: Vital Signs Temp 98 F 10/26/17 07:53 Pulse 90 10/26/17 07:53 Resp 17 10/26/17 07:53 BP 114/77 10/26/17 07:53 Pulse Ox 93 L 10/26/17 07:53 Intake & Output 10/25/17 10/26/17 10/26/17 18:59 06:59 18:59 Intake Total 540 60 Output Total 1700 200 Balance 540 -1700 -140 Weight 105.3 kg Intake: Oral 540 60 Output: Urine 1700 200 Other: Voiding Method Urinal # Voids 1 # Bowel Movements 0 - Exam GENERAL: This is a 72-year-old male in no apparent distress at the time of examination. Pleasant and cooperative. HEENT: Head is atraumatic, normocephalic. Pupils are equal, round, and reactive to light. Sclerae anicteric. Conjunctivae are clear. Mucus membranes of the mouth are moist. Neck is supple. RESPIRATORY: Clear to ausculation. No wheezes, rales, or rhonchi. No use of accessory muscles. Patient maintaining oxygen saturation greater than 92%. No chest wall tenderness is noted on palpation or with deep breathing. CARDIOVASCULAR: Regular rate and rhythm. S1 and S2 noted. No systolic or diastolic murmur auscultated. No JVD noted. No S3 or S4 noted. GASTROINTESTINAL: No distention noted. Abdomen soft and round. Normal active bowel sounds auscultated x 4 quadrants. No pain or tenderness noted upon palpation. INTEGUMENTARY: Dressing to right knee with ARNAUD wrap noted. No cyanosis. No jaundice. No rashes noted. No cellulitis noted. EXTREMITIES: 2+ peripheral pulses. No evidence of peripheral edema. No calf tenderness noted. NEUROLOGIC: Cranial nerves II-XII intact. PSYCHIATRIC: Awake, alert, and oriented X 3. Appropriate affect. Intact judgement and insight. - Labs CBC & Chem 7: 10/26/17 05:46 10/25/17 10:05 Labs: Abnormal Lab Results - Last 24 Hours (Table) 10/25/17 10/25/17 10/25/17 Range/Units 09:29 10:05 10:05 RBC 3.87 L (4.30-5.90) m/uL Hgb 12.1 L (13.0-17.5) gm/dL Hct 34.1 L (39.0-53.0) % Plt Count 131 L (150-450) k/uL Lymphocytes # 0.7 L (1.0-4.8) k/uL Glucose 115 H (74-99) mg/dL POC Glucose (mg/dL) 209 H (75-99) mg/dL Total Protein 5.6 L (6.3-8.2) g/dL Albumin 3.3 L (3.5-5.0) g/dL 10/26/17 Range/Units 05:46 RBC 3.99 L (4.30-5.90) m/uL Hgb 12.3 L (13.0-17.5) gm/dL Hct 35.1 L (39.0-53.0) % Plt Count 140 L (150-450) k/uL Lymphocytes # 0.6 L (1.0-4.8) k/uL Glucose (74-99) mg/dL POC Glucose (mg/dL) (75-99) mg/dL Total Protein (6.3-8.2) g/dL Albumin (3.5-5.0) g/dL Assessment and Plan Plan: ASSESSMENT: Osteoarthritis, s/p right total knee arthroplasty, POD #3 Transient ischemic attack Essential hypertension Hyperlipidemia History of TIA History of pulmonary embolus History of prostate cancer Remote history of tobacco abuse Obesity: BMI 34.2 PLAN: Continue postop management per orthopedics Home meds as appropriate Pain control Increase activity IS 10x/hour Monitor labs Continue Aggrenox Monitor vital signs and address as appropriate Further recommendations pending patient's course Patient is cleared for discharge from a medical standpoint once cleared by neurology and after EEG is completed Nurse practitioner note has been reviewed by physician. Signing provider agrees with the documented findings, assessment, and plan of care.
[2017-10-26] MEDS: CARVEDILOL 12.5 MG TAB PO SCH (10:06)
[2017-10-26] MEDS: ATORVASTATIN 10 MG TAB PO SCH (10:06)
[2017-10-26] MEDS: MELOXICAM 7.5 MG TAB PO SCH (10:07)
[2017-10-26] MEDS: DIPYRIDAMOLE-ASPIRIN 200-25 MG 1 EACH CPMP.12HR PO SCH (10:07)
[2017-10-26] MEDS: TRIAMTERENE-HCTZ 37.5-25MG 1 EACH CAP PO SCH (10:08)
[2017-10-26 11:32] VITALS: BP 102/67; PULSE 70; RESP 16; TEMP 97.6
[2017-10-26] MEDS: MULTIVITAMINS, THERA 1 EACH TAB PO SCH (12:57)
--- NOTE | 2017-10-26 13:55 | EEG ---
ELECTROENCEPHALOGRAM REPORT DATE OF SERVICE: 10/26/2017 REASON FOR TESTING: Transient ischemic attack. DESCRIPTION OF THE PROCEDURE: This EEG was performed using a 21 channel digital electroencephalograph, following international 10-20 system. DESCRIPTION OF THE RECORDING: From the beginning of the tracing, and with the patient's eyes closed, the background rhythm was mostly consisting of 9 Hz alpha frequency in the posterior occipital leads. No obvious asymmetry is seen. Photic stimulation was performed with a good driving response seen. No pathological waves were elicited. Occasional movement and muscle artifacts are seen. Hyperventilation was not performed. Later in the tracing, the patient does reach stage II of sleep, and occasional sleep spindles are seen. No epileptiform discharges were seen. His EKG lead showed a regular rate and rhythm. INTERPRETATION: This asleep and awake EEG can be considered within normal limits. There was no asymmetry seen. No epileptiform discharges were noticed. The absence of epileptiform discharges does not rule out the diagnosis of epilepsy, therefore clinical correlation is recommended. MMCONSTANZA / TAMMIN: [id number] /
--- NOTE | 2017-10-26 21:05 | P.PN ---
Subjective Progress Note Date: 10/26/17 Principal diagnosis: TIA (Patient rounded on at 1420 hrs. today prior to discharge) Neurology his following a 72-year-old male being followed by neurology for possible TIA. Patient was admitted to [facility] on 10/23/17 and underwent right total knee arthroplasty surgery. Patient was progressing well post surgery and was scheduled to be discharged. Patient does have a history of prior TIA events and is on Aggrenox twice a day at home. Aggrenox was held for surgery for one week. It was restarted. Soon after receiving Aggrenox, patient had sudden onset of difficulty speaking and code stroke was called. Symptoms lasted several minutes and resolved spontaneously. Stat CT of the brain shows chronic small vessel ischemic changes. Carotid Doppler showed no hemodynamically significant stenosis. Cardiac enzymes and INR were normal. CMP was normal except for mild hyperglycemia. CBC showed mild anemia and thrombocytopenia. After initial neurological consult patient was continued on Aggrenox twice a day dosing. EEG was ordered which was found to be normal. On contact, patient was resting in bed in no acute distress, spouse at the bedside. Patient was alert and oriented 3. Patient reports no new or recurrent neurological deficits. Nursing staff reports no new neurological events or any changes to neurological status. Objective - Vital Signs Vital signs: Vital Signs Temp 97.6 F 10/26/17 11:31 Pulse 70 10/26/17 11:46 Resp 16 10/26/17 11:46 BP 102/67 10/26/17 11:31 Pulse Ox 95 10/26/17 11:31 Intake & Output 10/26/17 10/26/17 10/27/17 06:59 18:59 06:59 Intake Total 60 Output Total 1700 200 Balance -1700 -140 Weight 105.3 kg Intake: Oral 60 Output: Urine 1700 200 Other: Voiding Method Urinal Toilet # Voids 1 # Bowel Movements 0 - Exam General appearance: Alert & oriented x4, no apparent distress. Head: Atraumatic, normocephalic, normal inspection Eyes: Well appearance, PERRLA, EOMI. Absent scleral icterus, conjunctival injection, nystagmus, periorbital swelling. Ear, nose and throat: Normal exam, mucous membranes moist Neck: Normal inspection, absent tenderness, lymphadenopathy. Respiratory: No increased work of breathing Cardiovascular: Regular rate, rhythm GI/abdominal: nontender, nondistended, no guarding. Extremities: right knee arthroplasty noted with bandaging, all other extremities unremarkable. integumentary: Right knee total arthroplasty with surgical site noted and surgical bandaging. Neurological: cranial nerves II through XII intact no lateralizing weakness no seizure activity noted on physical exam no pronator drift and no nystagmus. Left lower extremity: 5/5 Right lower extremity: status post right knee arthroplasty with surgical bandaging present Left upper extremity: 5/5 Right upper extremity: 5/5 Sensation equal in upper extremities and left lower extremity. Right lower extremity had some decreased sensation is noted to be status post recent total knee arthroplasty. Psychological: Mood and affect appropriate for setting. - Labs CBC & Chem 7: 10/26/17 05:46 10/25/17 10:05 Labs: Abnormal Lab Results - Last 24 Hours (Table) 10/26/17 Range/Units 05:46 RBC 3.99 L (4.30-5.90) m/uL Hgb 12.3 L (13.0-17.5) gm/dL Hct 35.1 L (39.0-53.0) % Plt Count 140 L (150-450) k/uL Lymphocytes # 0.6 L (1.0-4.8) k/uL Assessment and Plan (1) Status post total right knee replacement Status: Acute Code(s): Z96.651 - PRESENCE OF RIGHT ARTIFICIAL KNEE JOINT SNOMED Code(s): 9993344173219 (2) Transient ischemic attack (TIA) Status: Acute Code(s): G45.9 - TRANSIENT CEREBRAL ISCHEMIC ATTACK, UNSPECIFIED SNOMED Code(s): 095808738 Plan: 1. Status post right knee arthroplasty patient has a less than 1 week history of status post right knee arthroplasty due to osteoarthritis. Patient appears to be progressing well with rehabilitation. Surgical site was bandaged at time of exam. Continue plan of care per orthopedics in physical therapy providers. 2. TIA Patient does have prior history of TIA and current use of blood thinner. Patient's blood thinning medications were stopped to facilitate knee arthroplasty surgery. It does appear that the patient's symptoms experienced post arthroplasty are consistent with TIA. Patient has returned to baseline. Patient will continue Aggrenox at discharge and Lipitor. Patient's fasting lipid panel results were unavailable. Patient is noted to have already implemented Lipitor 10 mg based on home medication charting. Lipitor may need to be evaluated in the outpatient setting for possible increase as well as updated lipid panel if results are still unavailable. Status: Patient can be cleared for discharge from a neurological standpoint. Patient to follow-up in the office within 10-14 days. I have discussed the plan of care with the physician prior to implementation and he agrees with the plan as implemented.
--- NOTE | 2017-10-27 15:43 | CDI ---
Last Revision, June 2017 Documentation Clarification Form Date: 10/27/17 From: Dasia Sanon Phone: If you have a question regarding this query, please contact Coco Mcmanus at [phone] Admit Date: 10/23/2017 10:33:00 AM Patient Name: Theron Moralez Visit Number: [id number] Discharge Date: 10/26/17 ATTENTION: The Clinical Documentation Specialists (CDI) and [facility] Coding Staff appreciate your assistance in clarifying documentation. Please respond to the clarification below the line at the bottom and electronically sign. The CDI & [facility] Coding staff will review the response and follow-up if needed. Please note: Queries are made part of the Legal Health Record. If you have any questions, please contact the author of this message via ITS. Dr. Santiago Massey A diagnosis of anemia lacks specificity to accurately reflect your patients severity of condition and clarification is needed. Anemia is documented in Dr. Soler's consult note and in Frank Forrester's progress note on 10/26 History/Risk Factors: Patient had osteoarthritis of the right knee and was admitted for total knee replacement of the right knee. Clinical indicators: Drop in hemoglobin. Hemoglobin: 13.3, 12.1 and 12.3 Hematocrit: 37.2, 34.1 and 35.1 Treatment: No treatment In order to capture the severity of condition, please clarify the type of anemia and etiology if known: Acute blood loss anemia Acute on chronic blood loss anemia Chronic blood loss anemia Iron deficiency anemia Drug induced anemia Unable to determine Other, please specify _I am not sure why anemia was documented. His hemoglobin hardly dropped at all , and does not meet criteria for anemia. Please contact my PA, Elle Shea, to clarify. MTDD
--- NOTE | 2017-11-16 17:31 | CDI ---
Last Revision, June 2017 Documentation Clarification Form Date: 10/17/17 From: Dasia Sanon Phone: If you have a question regarding this query, please contact [facility] Mcman[facility] at [phone] between 8am and 5pm. Admit Date: 10/23/2017 10:33:00 AM Patient Name: Theron Moralez Visit Number: [id number] Discharge Date: 10/26/17 ATTENTION: The Clinical Documentation Specialists (CDI) and [facility] Coding Staff appreciate your assistance in clarifying documentation. Please respond to the clarification below the line at the bottom and electronically sign. The CDI & [facility] Coding staff will review the response and follow-up if needed. Please note: Queries are made part of the Legal Health Record. If you have any questions, please contact the author of this message via ITS. Elle Shea, A diagnosis of anemia lacks specificity to accurately reflect your patients severity of condition and clarification is needed. Anemia is documented in Dr. Soler's consult note and in Frank Forrester's progress note on 10/26 History/Risk Factors: Patient had osteoarthritis of the right knee and was admitted for total knee replacement of the right knee. Clinical indicators: Drop in hemoglobin. Hemoglobin: 13.3, 12.1 and 12.3 Hematocrit: 37.2, 34.1 and 35.1 Treatment: No treatment In order to capture the severity of condition, please clarify the type of anemia and etiology if known: Acute blood loss anemia Acute on chronic blood loss anemia Chronic blood loss anemia Iron deficiency anemia Unable to determine Other, please specify MTDD
== END 2017-10-26 16:18 | disposition home health service (06) | DRG 470 ==
LOC: 2ORMAIN 10:33 → 3SUR 16:03 → 6SEL 10-25 10:01
PROVIDERS: ADMIT Orthopaedic Surgery; ATTEND Orthopaedic Surgery
PROC: 0SRC0J9 Replacement of Right Knee Joint with Synthetic Substitute, Cemented, Open Approach (ICD-10-PCS; principal; 2017-10-23 12:40)
DX: M17.11 Unilateral primary osteoarthritis, right knee (principal); G45.9 Transient cerebral ischemic attack, unspecified; D69.6 Thrombocytopenia, unspecified; I35.0 Nonrheumatic aortic (valve) stenosis; E66.9 Obesity, unspecified; R29.702 NIHSS score 2; E78.5 Hyperlipidemia, unspecified; I10 Essential (primary) hypertension; M21.169 Varus deformity, not elsewhere classified, unspecified knee; R73.9 Hyperglycemia, unspecified; Z68.34 Body mass index [BMI] 34.0-34.9, adult; Z79.899 Other long term (current) drug therapy; Z87.891 Personal history of nicotine dependence; Z86.73 Personal history of transient ischemic attack (TIA), and cerebral infarction without residual deficits; Z86.711 Personal history of pulmonary embolism; Z85.46 Personal history of malignant neoplasm of prostate; Z98.42 Cataract extraction status, left eye; Z98.41 Cataract extraction status, right eye; Z96.1 Presence of intraocular lens; Z98.1 Arthrodesis status; Z90.79 Acquired absence of other genital organ(s)
CPT/HCPCS: 70450; 80053; 82550; 82553; 84484; 85025; 85610; 85730; 88305; 88311; 93880; 93970; 94640; 95819

== ENCOUNTER 2018-10-25 07:45 | Day surgery (SDC) | payer MEDICARE, BC ==
[2018-10-23 15:24] VITALS: BMI 36.0
[~2018-10-25 07:45] MED LIST changes: -ACETAMINOPHEN TAB 500 MG TAB PO ONE; -MELOXICAM 7.5 MG TAB PO ONE; -MORPHINE SULFATE 2 MG/ML SYRINGE IV PRN; -ONDANSETRON 4 MG/2 ML VIAL IVP ONE; -TRANEXAMIC ACID 1,000 MG in SODIUM CHLORIDE 0.9% 50 ML IVPB ONE; -ceFAZolin IN SWFI 2 GM/20 ML SYRINGE IVP ONE
[2018-10-25 08:02] VITALS: RESP 16; TEMP 98
[2018-10-25] MEDS: LACTATED RINGERS 1,000 ML IV SCH ×2 (08:10→08:55)
[2018-10-25] MEDS ORDERED: GLYCOPYRROLATE 0.2 MG/ML 2 ML VIAL ONE (08:58)
[2018-10-25] MEDS ORDERED: LIDOCAINE 1% INJ 10MG/ML (20 ML MDV) ONE (08:58)
[2018-10-25] MEDS ORDERED: PROPOFOL 10 MG/ML 20 ML VIAL IV ONE (08:58)
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
[2018-10-25 10:00] VITALS: BP 144/87; PULSE 85
--- NOTE | 2018-10-25 11:02 | P.OP ---
Date of Procedure: 10/25/18 Preoperative Diagnosis: Anemia Postoperative Diagnosis: Anemia Antral gastritis Hiatal hernia Esophagitis Colon polyp Procedure(s) Performed: EGD Colonoscopy Anesthesia: MAC Surgeon: Gustavo Tenorio Pathology: other (Colon polyp, antrum, esophagus) Condition: stable Disposition: PACU Description of Procedure: The patient's placed on the endoscopy table in the lateral position. He received IV sedation. The gastroscope placed oropharynx passed in the esophagus and into the stomach. Scope was then placed through the pylorus. The first and second portion of the duodenum appeared normal. The scope was then brought back the antrum and there was moderate inflammation. Several biopsies performed. There is no evidence of any active GI bleed. The scope was then retroflexed and there was a moderate size hiatal hernia. The GE junction was at 38 cm. The distal esophagus was mildly inflamed a biopsies performed. The proximal esophagus appeared normal. Scope withdrawn for patient. Next digital rectal exam was performed which revealed no abnormalities. Possible colonoscope was then placed patient anus and passed throughout the entire colon. The ileocecal valve was visually's. The cecum, ascending and transverse colon appeared normal. The descending colon appeared normal. In the sigmoid colon at 30 cm naveed there was a large pedunculated polyp which was removed with snare. Scope summer back the rectum and this appeared normal. Scope withdrawn for patient.
== END 2018-10-25 10:16 | disposition home or self-care (01) ==
LOC: ORWHC2ENDO 07:45
PROVIDERS: ATTEND Surgery
DX: D64.9 Anemia, unspecified (principal); K29.60 Other gastritis without bleeding; K20.9 Esophagitis, unspecified; B96.81 Helicobacter pylori [H. pylori] as the cause of diseases classified elsewhere; K44.9 Diaphragmatic hernia without obstruction or gangrene; D12.5 Benign neoplasm of sigmoid colon; E78.5 Hyperlipidemia, unspecified; I10 Essential (primary) hypertension; M19.90 Unspecified osteoarthritis, unspecified site; Z86.711 Personal history of pulmonary embolism; Z85.46 Personal history of malignant neoplasm of prostate; Z86.73 Personal history of transient ischemic attack (TIA), and cerebral infarction without residual deficits; Z87.891 Personal history of nicotine dependence; Z92.3 Personal history of irradiation; Z79.82 Long term (current) use of aspirin; Z79.51 Long term (current) use of inhaled steroids; Z79.899 Other long term (current) drug therapy
CPT/HCPCS: 88305; 88342; 45385; 43239; J2001; J2704

== ENCOUNTER → 2019-05-17 | Outpatient (CLI) | payer MEDICARE, BC | END | disposition home or self-care (01) | LOC: LABWHC1 08:17 | PROVIDERS: ATTEND Radiology Radiation Oncology | DX: C61 Malignant neoplasm of prostate (principal); Z90.79 Acquired absence of other genital organ(s) | CPT/HCPCS: 36415; 84153 ==

== ENCOUNTER → 2021-07-30 | Outpatient (CLI) | payer MEDICARE, BC ==
--- NOTE | 2021-07-30 09:59 | CT ---
EXAMINATION TYPE: CT abdomen pelvis wo con DATE OF EXAM: 07/30/2021 HISTORY: Gross hematuria, history of prostate cancer CT DLP: 1088 mGycm. Automated Exposure Control for Dose Reduction was Utilized. TECHNIQUE: CT scan of the abdomen and pelvis is performed without oral or IV contrast. COMPARISON: CT abdomen and pelvis April 28, 2016 FINDINGS: Within the limitations of a non-contrast study, the following observations are made. LUNG BASES: Calcification at level of the aortic valve. Additional calcification in the RCA distribut ion LIVER/GB: The dependent gallstones redemonstrated. PANCREAS: No significant abnormality is seen. SPLEEN: No significant abnormality is seen. ADRENALS: No significant abnormality is seen. KIDNEYS: Cortical thinning bilaterally is redemonstrated. There is exophytic 2.8 cm thin-walled cyst laterally midpole level right kidney axial image 34 that is increased in size from prior. Roughly 1.4 cm thin-walled cyst inferior to this operative midpole right kidney posteriorly coronal image 82 is redemonstrated. Small simple appearing parapelvic cyst centrally in the left kidney are again seen. 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 No renal calculus or hydronephrosis seen bi laterally. Poorly distended bladder on current study without intraluminal calculus. BOWEL: No significant abnormality is seen. GENITAL ORGANS: Prostate gland is surgically absent. Numerous surgical clips in the pelvis are redemo nstrated. LYMPH NODES: No greater than 1cm abdominal or pelvic lymph nodes are appreciated. OSSEOUS STRUCTURES: Long segment surgical change to the lumbar spine is redemonstrated. There is loss of normal lumbar lordosis. Demineralization is seen. Slight grade 1 anterolisthesis of L1 on L2 with severe disc space narrowing is redemonstrated. Moderate to severe disc space narrowing with vacuum d isc phenomenon L4-L5 and L5-S1 levels is redemonstrated. Mild height loss through the anterior L2 quique tebra again seen. Moderate to severe axial joint space loss in both hips is redemonstrated. OTHER: Mildly calcified plaque in ectatic abdominal aorta. IMPRESSION: Source of gross hematuria not identified. If symptoms persist further investigation with CT urogram would be warranted. Surgical changes to prostate and pelvis redemonstrated without signifi cant change from prior.
== END | disposition home or self-care (01) ==
LOC: RADCTMAIN 09:09
PROVIDERS: ATTEND Urology
DX: R31.0 Gross hematuria (principal); Z85.46 Personal history of malignant neoplasm of prostate
CPT/HCPCS: 74176